=== PATIENT | male | born 1995 | race Hispanic/Latino ===

== ENCOUNTER → 2023-07-11 11:55 | Outpatient (REF) | payer OTHER, SELFPAY ==
[2023-07-11 14:26] LABS: Glycohemoglobin (HgbA1c) 5.4 % (4.0-5.6)
== END ==
LOC: REG 11:55
PROVIDERS: ATTENDING PHYSICIAN Internal Medicine
DX: Z13.1 Encounter for screening for diabetes mellitus (principal)
CPT/HCPCS: 36415; 83036